=== PATIENT | male | born 1995 ===

== ENCOUNTER 2023-09-15 05:51 | Emergency (ER) | payer SELFPAY ==
[~2023-09-15] VITALS: Ht 182 cm; Wt 100.0 kg
[2023-09-15 05:52] VITALS: BP 120/91
[2023-09-15] MEDS ORDERED: FLUORESCEIN 1 MG OPHTHALMIC STRIPS ONE (06:05)
[2023-09-15] MEDS ORDERED: TETRACAINE 0.5% OPHTH SOLN 4 ML BTL (SINGLE DOSE ONLY) ONE (06:05)
[2023-09-15] MEDS ORDERED: KETOROLAC INJ 15 MG/ML VIAL ONE (06:10)
[2023-09-15] MEDS ORDERED: KETOROLAC INJ 15 MG/ML VIAL IM ONE (06:15)
[2023-09-15] MEDS ORDERED: OFLO5DRO8 OP (06:20)
[2023-09-15] MEDS ORDERED: KETO10TA PO (06:20)
--- NOTE | 2023-09-15 06:21 | ED EENT ---
History of Present Illness General Chief Complaint: Eye Problems Stated Complaint: EYE INJ Source: patient Exam Limitations: language barrier History of Present Illness Date Seen by Provider: Sep 15, 2023 Time Seen by Provider: 06:02 Initial Comments 27-year-old male presents to the emergency department today for right eye redness, pain. He states he had an injury where an extension cord struck him in the eye about a year ago. 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 He states that usually red in the morning and throughout the day gets slightly better but he typically does not have pain. Around 5 days ago he started to have pain that worsened in the last couple of days. He has some doctor at the walk-in clinic I believe and was given some antibiotic eyedrops which she presents to me. Unfortunately the labels rubbed off and I cannot tell what these are. He states his pain has persisted. He has not seen an eye doctor in several years. He does not use contacts or wear eyeglasses. He feels his visual acuity is unchanged, seeing mostly just light in that eye. All other systems reviewed and negative except documented per HPI. Voice recognition software was used to help create this chart Allergies and Home Medications Allergies Coded Allergies: No Known Drug Allergies (Unverified , 09/15/23) Patient Home Medication List Home Medication List Reviewed: Yes Ketorolac Tromethamine (Ketorolac Tromethamine) 10 Mg Tablet, 10 MG PO TID Prescribed by: FER BREEN MD on 09/15/23 0620 Ofloxacin (Ofloxacin) 0.3 % Drops, 2 DROPS OP Q3HR Prescribed by: FER BREEN MD on 09/15/23 0620 Review of Systems Review of Systems Constitutional: see HPI Past [id number] Hx Patient Social History Tobacco Use?: Yes Use of E-Cig and/or Vaping dev: No Substance use?: No Alcohol Use?: No Physical Exam Vital Signs Vital Signs - First Documented 09/15/23 05:52 Temp 35.6 Pulse 61 Resp 16 B/P (MAP) 120/91 (101) Height, Weight, BMI Height: '" Weight: lbs. oz. kg; BMI Method: General Appearance: WD/WN, no apparent distress Eyes: right eye conjunctival inflammation (Significant inflammation conjunctive a on the right side as well as the sclera. Pupil is equal and reactive.); left eye normal inspection, left eye PERRL, left eye EOMI Cardiovascular: regular rate, rhythm, no murmur Respiratory: chest non-tender, normal breath sounds, no respiratory distress Neurologic/Psychiatric: alert, oriented x 3 Skin: normal color Progress/Results/Core Measures Results/Orders My Orders Orders - FER BREEN DO Fluorescein Ophthalmic Strips (Fluoresce (09/15/23 06:05) Tetracaine 0.5% Ophth Alissa Sdv (Tetracai (09/15/23 06:05) Ketorolac Injection (Ketorolac Injection (09/15/23 06:10) Ketorolac Injection (Ketorolac Injection (09/15/23 06:15) Vital Signs/I&O 09/15/23 05:52 Temp 35.6 Pulse 61 Resp 16 B/P (MAP) 120/91 (101) Departure Communication (Admissions) Patient is hemodynamically stable. Fluorescein staining is negative. Proparacaine drops do seem to have improved his pain. He has visual acuity only to light at baseline and this is unchanged. He has clear watering of the eye but no purulent drainage. At this point unfortunately I think we have reached the limitation of her capabilities in the emergency department. I advised him to call the analytics intern first thing this morning for follow-up and further treatment recommendations. Unfortunately I cannot tell what antibiotic drops he is on so I will order ofloxacin. He is also given a shot of Toradol IM and discharged with p.o. Toradol. Impression Primary Impression: Eye infection Qualified Codes: H44.001 - Unspecified purulent endophthalmitis, right eye Disposition: 01 HOME, SELF-CARE Condition: Stable Departure-Patient Inst. Patient Instructions: Conjunctivitis (Pinkeye) (DC) Add. Discharge Instructions: Please follow-up with the analytics intern by calling to schedule an appointment. Ca ll first thing this morning. They open at 8 AM. 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 I also gave you a pain medication which you can take up to 3 times a day as needed. Do not take any other anti- inflammatory medications like Motrin or Aleve while taking this. [facility] [id number] [place] [address] Opens 8 AM Abigail un seguimiento con el optometrista llamando para programar hazel elier. Llama esta maana a primera hora. Abren a las 8 de la maana. [place] stephania nuevas gotas antibiticas para los ojos y tmelas segn lo recetado. Tambin te di un analgsico que puedes brain hasta 3 veces al da segn sea necesario. No tome ningn otro medicamento antiinflamatorio lena Motrin o Aleve mientras michael esto. [place] [facility] [address], [place] [address] Abre a las 8 a.m. Telfono: All discharge instructions reviewed with patient and/or family. Voiced understanding. Scripts Ketorolac Tromethamine (Ketorolac Tromethamine) 10 Mg Tablet 10 MG PO TID for Pain for 3 Days, #9 TAB Prov: FER BREEN DO 09/15/23 Ofloxacin (Ofloxacin) 0.3 % Drops 2 DROPS OP Q3HR for 7 Days, #1 EA Prov: FER BREEN DO 09/15/23 FER BREEN DO Sep 15, 2023 06:21
[2023-09-15] MEDS ORDERED: FLUORESCEIN 1 MG OPHTHALMIC STRIPS OP ONE (06:30)
[2023-09-15] MEDS ORDERED: TETRACAINE 0.5% OPHTH SOLN 4 ML BTL (SINGLE DOSE ONLY) OP ONE (06:30)
[2023-09-16] MEDS ORDERED: ACHD5005 PO (09:40)
== END 2023-09-15 06:42 | disposition home or self-care (01) ==
LOC: EDBD → ER FS 06:00
DX: H44.001 Unspecified purulent endophthalmitis, right eye (principal)
CPT/HCPCS: 96372; 99284

== ENCOUNTER 2023-09-16 08:28 | Emergency (ER) | payer SELFPAY ==
[~2023-09-16 08:28] MED LIST: KETO10TA PO; OFLO5DRO8 OP
[2023-09-16] MEDS ORDERED: HYDROcodone/ACETAMINOPHEN 5 MG/325 MG TABLET PO ONE (08:45)
[2023-09-16] MEDS ORDERED: KETOROLAC INJ 15 MG/ML VIAL IM ONE (08:45)
[2023-09-16] MEDS ORDERED: TETRACAINE 0.5% OPHTH SOLN 4 ML BTL (SINGLE DOSE ONLY) OP STA (08:45)
--- NOTE | 2023-09-16 08:49 | ED EENT ---
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 He was seen in the ER roughly 24 hours ago here and was given a prescription for an antibiotic drop which he has been using. He has an appointment 2 hours with the eye doctor here in town. He denies any fever. He mostly wants something for pain prior to that appointment. Allergies and Home Medications Allergies Coded Allergies: No Known Drug Allergies (Unverified , 09/15/23) Patient Home Medication List Home Medication List Reviewed: Yes Hydrocodone/Acetaminophen (Hydrocodone-Acetamin 5-325 mg) 5 Mg-325 Mg Tablet, 1 TAB PO Q6H PRN for PAIN-MODERATE (5-7) Prescribed by: ALBERTINA ARANA on 09/16/23 0940 Ketorolac Tromethamine (Ketorolac Tromethamine) 10 Mg Tablet, 10 MG PO TID Prescribed by: FER BREEN MD on 09/15/23 0620 Ofloxacin (Ofloxacin) 0.3 % Drops, 2 DROPS OP Q3HR Prescribed by: FER BREEN MD on 09/15/23 0620 Review of Systems Review of Systems Constitutional: No fever Eyes: See HPI Ears: No Symptoms Reported Nose: no symptoms reported Mouth: no symptoms reported Throat: no symptoms reported Respiratory: no symptoms reported Cardiovascular: no symptoms reported Gastrointestinal: no symptoms reported Musculoskeletal: no symptoms reported Skin: no symptoms reported Physical Exam Vital Signs Vital Signs - First Documented 09/16/23 09/16/23 09:12 09:30 Temp 36.5 Pulse 55 Resp 16 B/P (MAP) 123/88 (100) Pulse Ox 100 O2 Delivery Room Air Height, Weight, BMI Height: '" Weight: lbs. oz. kg; 30.00 BMI Method: General Appearance: WD/WN, no apparent distress Eyes: right eye other (conjunctival and scleral injection, hyphema present, cannot see light with right eye); left eye normal inspection; bilateral eye EOMI Ears: bilateral ear auricle normal Nose: normal inspection Mouth/Throat: normal mouth inspection, pharynx normal Neck: non-tender, full range of motion, supple, normal inspection Cardiovascular: regular rate, rhythm, no edema, no murmur Respiratory: chest non-tender, lungs clear, normal breath sounds, no respiratory distress, no accessory muscle use Gastrointestinal: normal bowel sounds, non tender, soft Neurologic/Psychiatric: no motor/sensory deficits, alert, normal mood/affect, oriented x 3 Skin: normal color, warm/dry Progress/Results/Core Measures Results/Orders My Orders Orders - ALBERTINA ARANA MD Tetracaine 0.5% Ophth Alissa Sdv (Tetracai (09/16/23 08:45) Hydrocodone/Apap 5/325 Tablet (Hydrocod (09/16/23 08:45) Ketorolac Injection (Ketorolac Injection (09/16/23 08:45) Medications Given in ED Current Medications Medications Dose Ordered Sig/Salvatore Route Start Time Stop Time Status Last Admin Dose Admin Acetaminophen/ Hydrocodone Bitart 1 ea ONCE ONCE PO 09/16/23 08:45 09/16/23 08:46 DC 09/16/23 08:59 1 EA Ketorolac Tromethamine 15 mg ONCE ONCE IM 09/16/23 08:45 09/16/23 08:46 DC 09/16/23 08:59 15 MG Vital Signs/I&O 09/16/23 09/16/23 09:12 09:30 Temp 36.5 Pulse 55 55 Resp 16 16 B/P (MAP) 123/88 (100) 123/88 Pulse Ox 100 100 O2 Delivery Room Air Room Air Progress Progress Note : Progress Note 27-year-old male with above history coming in due to right eye pain. ABCs were intact and vitals were stable on presentation. He was completely blind in this eye already from a previous injury. He used to be able to see a little bit of light, now it is darkness in the eye. He does have inflammation of the conjunctive a and sclera as well as what appears to be an "8-ball" hyphema. He has no fever, and no other clinical signs of a systemic infection. I contacted the plant science professor here in [facility], because the patient stated that he had an appointment. In fact the patient did not have an appointment, he was confused and only has an appointment with our community hospital. I did discuss the case with the plant science professor, and he thinks it would be more nonemergent given he is already lost his vision, but he would like to see him today to help with pain control. 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 I will send a prescription for hydrocodone given his significant pain. I believe he is otherwise stable for discharge with outpatient follow-up. He was sent home with strict return precautions. Update after appointment: discussed the case after the plant science professor, Dr. 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 He states since the patient was already blind, the treatment will focus on pain control. His intraocular pressure was normal. He referred him up to eye center. Treatment may include enucleation for pain control. Departure Impression Primary Impression: Scleritis of right eye Additional Impression: Hyphema of right eye Disposition: 01 HOME, SELF-CARE Condition: Stable Departure-Patient Inst. Decision time for Depature: 09:30 Referrals: NO,LOCAL PHYSICIAN (PCP/Family) Primary Care Physician Patient Instructions: How to Use Eye Drops Add. Discharge Instructions: Continue to use the antibiotic drops. Stronger pain medicine called hydrocodone was sent to the pharmacy attached with our community hospital. You can still go to your our community hospital appointment today at 1120. You should see the eye doctor at 2 PM. Be sure to bring someone that can translate for you. The address once again is [address] [facility], [place] [address]. Contine usando las gotas antibiticas. Un analgsico ms albert llamado hidrocodona se envi a la farmacia adjunta a la anaid comunitaria. Todava puede ir a camargo elier de [employer] com[employer] hoy al 1120. Debe filippo al oftalmlogo a las 2 p.m. Asegrese de traer a alguien que pueda traducir para usted. [place] direcc[address] [place] [address] [place] [address]. Scripts Hydrocodone/Acetaminophen (Hydrocodone-Acetamin 5-325 mg) 5 Mg-325 Mg Tablet 1 TAB PO Q6H PRN for PAIN-MODERATE (5-7) for 3 Days, #12 TAB Prov: ALBERTINA ARANA MD 09/16/23 Work/School Note: Family Work Note, Patient Received Medical Care In the Emergency Department On: Sep 16, 2023 Patient Will Be Able to Return to Work/School On: Sep 17, 2023 Work Release Form Date Seen in the Emergency Department: Sep 16, 2023 Return to Work: Sep 17, 2023 Restrictions: No Restrictions ALBERTINA ARANA MD Sep 16, 2023 08:49
[2023-09-16 09:30] VITALS: BP 123/88
[2023-09-16] MEDS ORDERED: ACHD5005 PO (09:40)
== END 2023-09-16 09:31 | disposition home or self-care (01) ==
LOC: EDUNIT# 08:28 → EDBD 08:30 → ER FS 08:30
DX: H15.001 Unspecified scleritis, right eye (principal); H21.01 Hyphema, right eye
CPT/HCPCS: 96372; 99284